=== PATIENT | female | born 1955 | race American Indian/Alaskan Native ===

== ENCOUNTER 2017-02-21 03:35 | Emergency (ER) | payer MEDICAID ==
[2017-02-21] MEDS ORDERED: ATIVAN ONE (04:06)
[2017-02-21] MEDS ORDERED: ATIVAN IV ONE (04:10)
[2017-02-21] MEDS ORDERED: NEURONTIN PO ONE (04:33)
[2017-02-21] MEDS ORDERED: NACL 0.9% 1000 ML 1,000 ML ONE ×2 (04:43→10:24)
[2017-02-21] MEDS ORDERED: NACL 0.9% 1000 ML 1,000 ML IV ONE ×3 (04:47→10:24)
[2017-02-21] MEDS ORDERED: ZOFRAN IV ONE (06:31)
--- NOTE | 2017-02-21 07:00 | Emergency Department Report ---
- General Chief complaint: Extremity Injury, Lower Stated complaint: GENERAL ILLNESS Time Seen by Provider: 02/21/17 06:30 Source: patient, EMS Mode of arrival: Stretcher Limitations: No Limitations - History of Present Illness Initial comments: Patient is a 61-year-old female with a history of diabetes, neuropathy, and anxiety presents to the ER with hyperglycemia and weakness. Patient is a poor historian, daughter at bedside reports patient is a diabetic and has been complaining of neuropathic pains for some time now. Patient reports she did see her PMD on Wednesday and does have all her medications, but cannot recall when the last time she took her insulin bolus. Patient does state NovoLog 7030 and reports she takes 20 units in the morning and 10 units at night. Currently patient has no complaints besides neuropathy in her lower extremities. Otherwise no fevers, chills, dizziness, nausea, vomiting, diarrhea, chest pain, shortness of breath, abdominal pain, dysuria, back pain, travel, or sick contacts. MD Complaint: generalized weakness -: Gradual Severity scale (0 -10): 0 - Related Data Home Medications Medication Instructions Recorded Confirmed Last Taken Gabapentin [Neurontin] 300 mg PO Q8HR 02/21/17 02/21/17 Unknown Allergies Allergy/AdvReac Type Severity Reaction Status Date / Time Iodinated Contrast Media - AdvReac Hives Verified 02/21/17 04:04 IV Dye Latex, Natural Rubber AdvReac Hives Verified 02/21/17 04:04 ED Review of Systems ROS: Stated complaint: GENERAL ILLNESS Other details as noted in HPI Comment: All other systems reviewed and negative ED Past Medical Hx - Past Medical History Previous Medical History?: Yes Hx Diabetes: Yes Hx COPD: Yes Additional medical history: anxiety - Social History Smoking Status: Current Every Day Smoker Substance Use Type: None - Medications Home Medications: Home Medications Medication Instructions Recorded Confirmed Last Taken Type Gabapentin [Neurontin] 300 mg PO Q8HR 02/21/17 02/21/17 Unknown History ED Physical Exam - General Limitations: No Limitations General appearance: alert, in no apparent distress - Head Head exam: Present: atraumatic, normocephalic - Eye Eye exam: Present: normal appearance - ENT ENT exam: Present: mucous membranes moist - Neck Neck exam: Present: normal inspection - Respiratory Respiratory exam: Present: normal lung sounds bilaterally. Absent: respiratory distress - Cardiovascular Cardiovascular Exam: Present: regular rate, normal rhythm, normal heart sounds. Absent: systolic murmur, diastolic murmur, rubs, gallop - GI/Abdominal GI/Abdominal exam: Present: soft, normal bowel sounds. Absent: distended, tenderness, guarding, rebound - Extremities Exam Extremities exam: Present: normal inspection, full ROM. Absent: tenderness, pedal edema, joint swelling, calf tenderness - Back Exam Back exam: Present: normal inspection - Neurological Exam Neurological exam: Present: alert, oriented X3, CN II-XII intact. Absent: motor sensory deficit - Psychiatric Psychiatric exam: Present: normal affect, normal mood - Skin Skin exam: Present: warm, dry, intact, normal color. Absent: rash ED Course Vital Signs 02/21/17 02/21/17 02/21/17 03:59 04:00 06:03 Temperature 97.7 F Pulse Rate 82 85 Respiratory 31 H 20 20 Rate Blood Pressure 151/92 Blood Pressure 97/78 [Left] Blood Pressure [Right] O2 Sat by Pulse 100 98 98 Oximetry 02/21/17 10:02 Temperature Pulse Rate Respiratory Rate Blood Pressure Blood Pressure 118/72 [Left] Blood Pressure 108/64 [Right] O2 Sat by Pulse Oximetry - Reevaluation(s) Reevaluation #1: 02/21/17 10:24 Pt re-evaluated, no complaints, resting comfortably, repeat FSG after 1L NS IVF : 275, Ordered 2nd liter Reevaluation #2: 02/21/17 11:48 Pt resting comfortably, s/p 2nd L of NS, repeat FS ED Medical Decision Making - Lab Data Result diagrams: 02/21/17 03:30 02/21/17 08:11 - Medical Decision Making Pt has uncontrolled DM vs med noncompliance. No evidence of DKA, patient FSG improving with NS alone. Lactic acid normal, mild AG elevation, will ordered 2nd liter and re-assess. Results discussed with daughter at the bedside, instructed her to make sure her mother is taking her insulin and takes it today when she leaves the ER and to follow up with her PMD Critical care attestation.: If time is entered above; I have spent that time in minutes in the direct care of this critically ill patient, excluding procedure time. ED Disposition Clinical Impression: Hyperglycemia due to type 2 diabetes mellitus, Neuropathy Disposition: DISCHARGED TO HOME OR SELFCARE Is pt being admited?: No Condition: Stable Instructions: Diabetes Mellitus Type 2 in Adults (ED), Diabetic Neuropathy (ED) Referrals: PRIMARY CARE,MD [Primary Care Provider] - 3-5 Days
[2017-02-21 07:06] LABS: Bacteria,Urine 1+ /HPF (Negative); Bilirubin,Urine NEG (Negative); Blood,Urine NEG (Negative); Ketones,Urine NEG (Negative); Leukocyte Esterase,Urine NEG (Negative); Nitrite,Urine NEG (Negative); Protein,Urine <15 mg/dL mg/dL (Negative); RBC,Urine < 1.0 /HPF (0.0-6.0); Urobilinogen,Urine < 2.0 mg/dL (<2.0)
[2017-02-21 07:13] LABS: Eosinophils % (Auto) 0.5 % (0.0-4.3)
[2017-02-21 07:15] LABS: Hematocrit 39.5 % (30.3-42.9); Mean Corpuscular Hemoglobin 29 pg (28-32); Mean Corpuscular Volume 86 fl (79-97); Red Blood Count 4.57 M/mm3 (3.65-5.03); White Blood Count 6.9 K/mm3 (4.5-11.0)
[2017-02-21 07:16] LABS: Basophils % (Auto) 0.4 % (0.0-1.8); Lipase 49 units/L (13-60); Mean Corpuscular HGB Conc 33 % (30-34); Red Cell Distribution Width 14.9 % (13.2-15.2)
[2017-02-21 07:17] LABS: Platelet Count 125 K/mm3 (140-440)
[2017-02-21 07:46] LABS: Anion Gap TNR mmol/L; Carbon Dioxide TNR mmol/L (22-30); Potassium TNR mmol/L (3.6-5.0)
[2017-02-21 08:25] LABS: BUN/Creatinine Ratio TNR; Blood Urea Nitrogen TNR mg/dL (7-17); Chloride TNR mmol/L (98-107); Glucose TNR mg/dL (65-100); Sodium TNR mmol/L (137-145)
[2017-02-21 08:26] LABS: Alanine Aminotransferase TNR units/L (7-56); Albumin TNR g/dL (3.9-5); Bilirubin,Direct TNR mg/dL (0-0.2); Bilirubin,Indirect TNR mg/dL; Bilirubin,Total TNR mg/dL (0.1-1.2); Calcium TNR mg/dL (8.4-10.2); Total Protein TNR g/dL (6.3-8.2)
[2017-02-21 08:27] LABS: Albumin/Globulin Ratio TNR %; Alkaline Phosphatase TNR units/L (35-129)
[2017-02-21 08:33] LABS: Alanine Aminotransferase 25 units/L (7-56); Albumin 3.3 g/dL (3.9-5); Albumin/Globulin Ratio 1.1 %; Alkaline Phosphatase 68 units/L (35-129); Anion Gap 16 mmol/L; BUN/Creatinine Ratio 13.33; Blood Urea Nitrogen 8 mg/dL (7-17); Calcium 7.7 mg/dL (8.4-10.2); Carbon Dioxide 19 mmol/L (22-30); Chloride 107.1 mmol/L (98-107); Glucose 261 mg/dL (65-100); Potassium 3.8 mmol/L (3.6-5.0); Sodium 138 mmol/L (137-145); Total Protein 6.4 g/dL (6.3-8.2)
[2017-02-21 10:03] VITALS: BP 118/72
== END 2017-02-21 13:26 | disposition home or self-care (01) ==
LOC: ED 03:35
DX: E11.40 Type 2 diabetes mellitus with diabetic neuropathy, unspecified (principal); E11.65 Type 2 diabetes mellitus with hyperglycemia; E11.9 Type 2 diabetes mellitus without complications; J44.9 Chronic obstructive pulmonary disease, unspecified; F17.200 Nicotine dependence, unspecified, uncomplicated
CPT/HCPCS: 36415; 80048; 80053; 80074; 81001; 82140; 82805; 82962; 83690; 85025; 96361; 96374; 96375; 99284; J2060; J2405; J7030

== ENCOUNTER 2017-05-14 12:21 | Inpatient (IN) | payer MEDICAID ==
[2017-05-14 13:31] LABS: Basophils % (Auto) 0.9 % (0.0-1.8); Eosinophils % (Auto) 4.9 % (0.0-4.3); Hematocrit 36.9 % (30.3-42.9); Hemoglobin 11.9 gm/dl (10.1-14.3); Mean Corpuscular HGB Conc 32 % (30-34); Mean Corpuscular Hemoglobin 27 pg (28-32); Mean Corpuscular Volume 83 fl (79-97); Platelet Count 217 K/mm3 (140-440); Red Blood Count 4.45 M/mm3 (3.65-5.03); Red Cell Distribution Width 15.5 % (13.2-15.2); White Blood Count 7.7 K/mm3 (4.5-11.0)
[2017-05-14 13:41] LABS: Anion Gap 20 mmol/L; BUN/Creatinine Ratio 13.33; Blood Urea Nitrogen 12 mg/dL (7-17); Calcium 8.4 mg/dL (8.4-10.2); Carbon Dioxide 21 mmol/L (22-30); Chloride 101.9 mmol/L (98-107); Potassium 4.3 mmol/L (3.6-5.0); Sodium 139 mmol/L (137-145)
[2017-05-14 13:44] LABS: Urine Drugs of Abuse Note Disclamer
[2017-05-14 13:49] LABS: Glucose 508 mg/dL (65-100)
[2017-05-14 14:00] LABS: Bilirubin,Urine NEG (Negative); Blood,Urine NEG (Negative); Ketones,Urine NEG (Negative); Leukocyte Esterase,Urine NEG (Negative); Nitrite,Urine NEG (Negative); Protein,Urine <15 mg/dL mg/dL (Negative); Urobilinogen,Urine < 2.0 mg/dL (<2.0); WBC,Urine < 1.0 /HPF (0.0-6.0)
--- NOTE | 2017-05-14 20:31 | Emergency Department Report ---
HPI - General Chief Complaint: Medical Clearance Time Seen by Provider: 05/14/17 20:03 - HPI HPI: His is a 61-year-old Afro-Bur[place]ese female presents to the emergency department from home with complaints of auditory hallucinations that tell her to kill herself that started this morning. She says that these voices are nonspecific but they tell her to stab herself and her throat. She has a history of bipolar disorder and says that she used to be on Risperdal but she has not taken it in many months as she does not like the way it feels. She also has a past medical history of COPD but is not oxygen dependent and is diabetic on both pills and insulin. She took her glyburide today but did not take her insulin. She did not complain of any palpitations but appears to be an arrhythmia on the monitor and says that she has no history of any type of arrhythmia. She denies any tobacco use or illicit drug use or abuse. She did not take anything for symptoms prior to presentation. Recent travel or sick contacts at home. She does complain of some swelling to the lower extremities and some intermittent chest discomfort. ED Past Medical Hx - Past Medical History Hx Diabetes: Yes Hx COPD: Yes Additional medical history: anxiety - Surgical History Past Surgical History?: No - Social History Smoking Status: Current Every Day Smoker Substance Use Type: None, Cocaine - Medications Home Medications: Home Medications Medication Instructions Recorded Confirmed Last Taken Type Gabapentin [Neurontin] 300 mg PO Q8HR 02/21/17 05/14/17 Unknown History Glyburide 5 mg PO DAILY 05/14/17 05/14/17 Unknown History NovoLOG Mix 70/30 VIAL 20 units SUB-Q BID 05/14/17 05/14/17 Unknown History traZODone 100 mg PO HS 05/14/17 05/14/17 Unknown History ED Review of Systems ROS: Stated complaint: MH/HEARING VOICES/SUICIDAL THOUGHTS Other details as noted in HPI Comment: All other systems reviewed and negative Constitutional: denies: chills, fever Eyes: denies: eye pain, eye discharge, vision change ENT: denies: ear pain, throat pain Respiratory: denies: cough, shortness of breath Cardiovascular: chest pain, edema Gastrointestinal: denies: abdominal pain, nausea, diarrhea Genitourinary: denies: urgency, dysuria, discharge Musculoskeletal: denies: back pain, joint swelling, arthralgia Skin: denies: rash, lesions Neurological: denies: headache, weakness, paresthesias Psychiatric: auditory hallucinations, suicidal thoughts. denies: visual hallucinations, homicidal thoughts Physical Exam - Physical Exam Vital Signs: Vital Signs 05/14/17 05/14/17 05/14/17 12:54 20:04 20:10 Temperature 98.0 F 99.3 F Pulse Rate 98 H 109 H Respiratory 25 H Rate Blood Pressure 163/88 O2 Sat by Pulse 100 Oximetry 05/14/17 20:17 Temperature Pulse Rate Respiratory 21 Rate Blood Pressure O2 Sat by Pulse Oximetry Physical Exam: GENERAL: The patient is well-developed well-nourished. HEENT: Normocephalic. Atraumatic. Extraocular motions are intact. Patient has moist mucous membranes. Pupils equal reactive to light bilaterally. NECK: Supple. Trachea is midline. CHEST/LUNGS: Clear to auscultation. There is no respiratory distress noted. HEART/CARDIOVASCULAR: Irregularly irregular with rapid rate. ABDOMEN: Abdomen is soft, nontender. Patient has normal bowel sounds. There is no abdominal distention. SKIN: Skin is warm and dry. NEURO: The patient is awake, alert, and oriented. The patient is cooperative. The patient has no focal neurologic deficits. The patient has normal speech. Cranial nerves II through XII grossly intact. MUSCULOSKELETAL: There is no tenderness or deformity. There is no limitation range of motion. There is no evidence of acute injury. ED Course Vital Signs 05/14/17 05/14/17 05/14/17 12:54 20:04 20:10 Temperature 98.0 F 99.3 F Pulse Rate 98 H 109 H Respiratory 25 H Rate Blood Pressure 163/88 O2 Sat by Pulse 100 Oximetry 05/14/17 20:17 Temperature Pulse Rate Respiratory 21 Rate Blood Pressure O2 Sat by Pulse Oximetry ED Medical Decision Making - Lab Data Result diagrams: 05/14/17 13:06 05/14/17 13:06 - EKG Data -: EKG Interpreted by Me - EKG Data When compared to previous EKG there are: changes noted Interpretation: other (atrial flutter with PVCs, rate of 103 T-wave inversions to the inferior lateral leads) - Radiology Data Radiology results: report reviewed, image reviewed interpreted by me: Chest x-ray did not show any acute process. Heart is normal shape and size. No effusions. No pneumothorax. No signs of pneumonia seen. VQ scan is negative for pulmonary embolism. - Medical Decision Making 61-year-old female presents the emergency department with suicidal ideations, auditory hallucinations are telling her to stab herself in the neck and kill herself. For this reason the patient has been made a 1013. While I was doing my initial evaluation the patient was seen having a irregular heart rate and heart beat auscultation and palpation. EKG shows atrial flutter with RVR. Given a dose of Cardizem with some rate control but no chemical conversion. Most the patient's labs are unremarkable except for a very elevated d-dimer. For this reason a VQ scan was done, as the CT angiography is down, and it resulted as negative for pulmonary embolism. Chest x-ray does not show any acute process. She was given dose of Lovenox for anticoagulation. Due to the new onset atrial flutter the patient will be a medical admit but has been made a 1013. Patient was found to have a blood sugar of about 500 but this was at about 1: 00. The Accu-Chek showed the blood sugar to be about 320. Patient was given subcutaneous insulin. There is no significant elevation in anion gap and there is no venous acidosis and therefore low suspicion for DKA or HHNK. - Differential Diagnosis atrial flutter, atrial fibrillation, bipolar disorder, schizophrenia Critical Care Time: No Critical care attestation.: If time is entered above; I have spent that time in minutes in the direct care of this critically ill patient, excluding procedure time. ED Disposition Clinical Impression: Suicidal ideations, New onset atrial flutter, Hyperglycemia, Noncompliance with medication regimen Uncontrolled diabetes mellitus Qualifiers: Diabetes mellitus type: type 1 Diabetes mellitus complication status: with hyperglycemia Qualified Code(s): E10.65 - Type 1 diabetes mellitus with hyperglycemia Disposition: OP ADMIT IP TO THIS HOSP Is pt being admited?: Yes Condition: Fair Instructions: Diabetes Mellitus Type 2 in Adults (ED) Referrals: PRIMARY CARE, [Primary Care Provider] - 3-5 Days Time of Disposition: 23:24
[2017-05-14 20:51] LABS: INR 0.94 (0.87-1.13)
[2017-05-14 20:52] LABS: Partial Thromboplastin Time 25.4 Sec. (24.2-36.6)
[2017-05-14] MEDS ORDERED: CARDIZEM IV ONE (20:56)
[2017-05-14] MEDS ORDERED: ZOFRAN IV ONE (21:33)
--- NOTE | 2017-05-14 22:38 | Nuclear Medicine Report ---
FINAL REPORT EXAM: NM LUNG SCAN PERF/VENT HISTORY: CP, elevated dimer TECHNIQUE: Ventilation-perfusion study Exam performed with 15 millicuries Xe-133 gas for the ventilation study Perfusion exam performed following intravenous administration 5 millicuries technetium 99 M MAA PRIORS: Correlation is made to a prior chest radiograph of the same date FINDINGS: There is homogeneous distribution the radiotracer on ventilation exam. No evidence for air trapping. There is homogeneous distribution of the radiotracer on the perfusion study. No perfusion defects are identified. IMPRESSION: Negative. No scintigraphic evidence for acute pulmonary embolus
[2017-05-14] MEDS ORDERED: LOVENOX SUB-Q ONE (22:39)
[2017-05-14] MEDS ORDERED: NACL 0.9% 1000 ML 1,000 ML IV SCH (23:45)
--- NOTE | 2017-05-14 23:47 | History and Physical Report ---
History of Present Illness Date of examination: 05/14/17 Date of admission: 05/14/17 Chief complaint: hearing voices telling her to kill self palpitations History of present illness: Patient is 41-year-old with history of diabetes, hypertensio. She came to the emergency department because of psychosis. Shee stated that she heard voices telling her to kill herself. While in ED, she started complaining of shortness of breath and palpitation. EKG showed atrial flutter. She was given Cardizem iv. She will be admitted to telemetry. 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 denies: alcohol abuse Medications and Allergies Allergies Allergy/AdvReac Type Severity Reaction Status Date / Time Iodinated Contrast Media - AdvReac Hives Verified 02/21/17 04:04 IV Dye Latex, Natural Rubber AdvReac Hives Verified 02/21/17 04:04 Home Medications Medication Instructions Recorded Confirmed Last Taken Type Gabapentin [Neurontin] 300 mg PO Q8HR 02/21/17 05/14/17 Unknown History Glyburide 5 mg PO DAILY 05/14/17 05/14/17 Unknown History NovoLOG Mix 70/30 VIAL 20 units SUB-Q BID 05/14/17 05/14/17 Unknown History traZODone 100 mg PO HS 05/14/17 05/14/17 Unknown History Review of Systems All systems: negative (no fever, no cough, no abdominal pain, no vomiting. All other systems reviewed and are negative) Exam - Physical Exam Narrative exam: Gen appearance: Not in acute distress HEENT:tongue and mouth dry,head atraumatic Neck:supple, no JVD, Lungs: clear to auscultation bilaterally, no crackles or wheezes Heart :S1 and S2 irregular, no murmurs, rubs or gallop Abdomen: Soft, non tender, non distended, normal bowel sounds Extremities :no edema no clubbing or cyanosis Neuro: Awake, alert oriented 3, normal speech,no focal neurological signs - Constitutional Vitals: Temp Pulse Resp BP Pulse Ox 99.3 F 92 H 16 146/88 98 05/14/17 20:10 05/14/17 22:55 05/14/17 22:55 05/14/17 22:55 05/14/17 22:55 Results - Labs CBC & Chem 7: 05/14/17 13:06 05/14/17 13:06 Labs: Abnormal lab results 05/14/17 05/14/17 05/14/17 Range/Units 13:06 13:06 20:14 MCH 27 L (28-32) pg RDW 15.5 H (13.2-15.2) % Brooke % (Auto) 10.0 H (0.0-7.3) % Eos % (Auto) 4.9 H (0.0-4.3) % D-Dimer (0-234) ng/mlDDU Carbon Dioxide 21 L (22-30) mmol/L Glucose 508 H* (65-100) mg/dL POC Glucose 329 H (70-105) NT-Pro-B Natriuret Pep (0-900) pg/mL 05/14/17 05/14/17 Range/Units 20:32 20:32 MCH (28-32) pg RDW (13.2-15.2) % Brooke % (Auto) (0.0-7.3) % Eos % (Auto) (0.0-4.3) % D-Dimer 1701.89 H (0-234) ng/mlDDU Carbon Dioxide (22-30) mmol/L Glucose (65-100) mg/dL POC Glucose (70-105) NT-Pro-B Natriuret Pep 1426 H (0-900) pg/mL Assessment and Plan Atrial flutter with rapid ventricular response, new onset. Admit to telemetry. Start Cardizem 60 mg by mouth every 6 hours. She was given Cardizem IV push in the ED. Start on anticoagulation with Lovenox. Obtain echocardiogram. 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 Diabetes mellitus type 2. Check fingerstick glucose before every meal and at bedtime Hypertension . BP borderline. Acute psychosis with hallucinations. Patient states she has voices tell her to kill herself. Consult psych Suicidal. Consult psych Full CODE STATUS.
[2017-05-14] MEDS ORDERED: ZOFRAN IV PRN (23:48)
[2017-05-14] MEDS ORDERED: MILK OF MAGNESIA PO PRN (23:48)
[2017-05-14] MEDS ORDERED: TYLENOL PO PRN (23:48)
[2017-05-14] MEDS ORDERED: DULCOLAX PR PRN (23:48)
[2017-05-14] MEDS ORDERED: MORPHINE IV PRN (23:48)
[2017-05-15 00:27] LABS: Magnesium 1.8 mg/dL (1.7-2.3); Phosphorous 2.5 mg/dL (2.5-4.5)
[2017-05-15] MEDS: CARDIZEM PO SCH ×5 (01:10→22:34)
[2017-05-15] MEDS ORDERED: CARDIZEM ONE (06:41)
[2017-05-15 06:47] LABS: Basophils % (Auto) 1.1 % (0.0-1.8); Eosinophils % (Auto) 3.7 % (0.0-4.3); Hematocrit 36.7 % (30.3-42.9); Hemoglobin 11.9 gm/dl (10.1-14.3); Mean Corpuscular HGB Conc 33 % (30-34); Mean Corpuscular Hemoglobin 27 pg (28-32); Mean Corpuscular Volume 82 fl (79-97); Platelet Count 227 K/mm3 (140-440); Red Blood Count 4.48 M/mm3 (3.65-5.03); Red Cell Distribution Width 15.2 % (13.2-15.2)
[2017-05-15 07:10] LABS: Anion Gap 15 mmol/L; BUN/Creatinine Ratio 17.14; Blood Urea Nitrogen 12 mg/dL (7-17); Calcium 8.3 mg/dL (8.4-10.2); Carbon Dioxide 26 mmol/L (22-30); Chloride 100.4 mmol/L (98-107); Glucose 325 mg/dL (65-100); Potassium 4.4 mmol/L (3.6-5.0); Sodium 137 mmol/L (137-145)
--- NOTE | 2017-05-15 09:16 | XRay Report ---
Single view chest: History: Chest pain. Findings: Borderline cardiomegaly. Trachea is midline. Bibasilar atelectasis. Blunting of right CP angle probably due to pleural thickening/pleural effusion. Impression: Bibasilar atelectasis with bilateral pleural effusion/pleural thickening.
[2017-05-15] MEDS ORDERED: NOVOLOG MIX SUB-Q SCH (10:00)
[2017-05-15] MEDS: LOVENOX SUB-Q SCH ×2 (10:18→22:34)
[2017-05-15] MEDS ORDERED: D50W (25GM) Syringe IV PRN (11:58)
--- NOTE | 2017-05-15 11:58 | Progress Note ---
Assessment and Plan Assessment and plan: Patient is 41-year-old with history of diabetes, hypertensio. She came to the emergency department because of psychosis. Shee stated that she heard voices telling her to kill herself. While in ED, she started complaining of shortness of breath and palpitation. EKG showed atrial flutter. She was given Cardizem iv. She will be admitted to telemetry. Atrial flutter with rapid ventricular response, new onset. Admit to telemetry. Cardizem 60 mg by mouth every 6 hours. She was given Cardizem IV push in the ED. anticoagulation with Lovenox. Obtain echocardiogram. Consult cardiology BNP noted to be 1426 Elevated D-dimer VQ scan is negative, obtain US of LE to r/o DVT Diabetes mellitus type 2. Hyperglycemia, will increase dose of insulin, continue sliding scale Hypertension . BP borderline. Acute psychosis with hallucinations, and Suicidal ideations. Patient states she has voices tell her to kill herself. Consult psych Suicidal Ideation. Consult psych DVT ppx- fully antiocoagulated History Interval history: Denies chest pain, denies shortness of breath. States that she still hearing voices which have been telling her to hurt herself Hospitalist Physical - Physical exam Narrative exam: General: Patient appears well in no distress HEENT: MMM, EOMI cardiac: S1-S2 heard lungs: clear to auscultation, abdomen: soft, nontender, nondistended bowel sounds positive extremities: LLE edema Skin: no rash or lesion Neuro: no focal deficit Psych: Cooperative, however disorganized behavior - Constitutional Vitals: Temp Pulse Resp BP Pulse Ox 98 F 83 18 109/89 98 05/15/17 03:00 05/15/17 09:17 05/15/17 03:00 05/15/17 06:00 05/15/17 09:27 Results - Labs CBC & Chem 7: 05/15/17 06:26 05/16/17 09:54 Labs: Laboratory Last Values WBC 9.0 K/mm3 (4.5-11.0) 05/15/17 06:26 RBC 4.48 M/mm3 (3.65-5.03) 05/15/17 06:26 Hgb 11.9 gm/dl (10.1-14.3) 05/15/17 06:26 Hct 36.7 % (30.3-42.9) 05/15/17 06:26 MCV 82 fl (79-97) 05/15/17 06:26 MCH 27 pg (28-32) L 05/15/17 06:26 MCHC 33 % (30-34) 05/15/17 06:26 RDW 15.2 % (13.2-15.2) 05/15/17 06:26 Plt Count 227 K/mm3 (140-440) 05/15/17 06:26 Lymph % (Auto) 34.3 % (13.4-35.0) 05/15/17 06:26 [place] % (Auto) 7.5 % (0.0-7.3) H 05/15/17 06:26 Eos % (Auto) 3.7 % (0.0-4.3) 05/15/17 06:26 Baso % (Auto) 1.1 % (0.0-1.8) 05/15/17 06:26 Lymph # 3.1 K/mm3 (1.2-5.4) 05/15/17 06:26 [place] # 0.7 K/mm3 (0.0-0.8) 05/15/17 06:26 Eos # 0.3 K/mm3 (0.0-0.4) 05/15/17 06:26 Baso # 0.1 K/mm3 (0.0-0.1) 05/15/17 06:26 Seg Neutrophils % 53.4 % (40.0-70.0) 05/15/17 06:26 Seg Neutrophils # 4.8 K/mm3 (1.8-7.7) 05/15/17 06:26 PT 12.5 Sec. (12.2-14.9) 05/14/17 20:32 INR 0.94 (0.87-1.13) 05/14/17 20:32 APTT 25.4 Sec. (24.2-36.6) 05/14/17 20:32 D-Dimer 1701.89 ng/mlDDU (0-234) H 05/14/17 20:32 VBG pH 7.395 (7.320-7.420) 05/14/17 20:25 Sodium 137 mmol/L (137-145) 05/15/17 06:26 Potassium 4.4 mmol/L (3.6-5.0) 05/15/17 06:26 Chloride 100.4 mmol/L (98-107) 05/15/17 06:26 Carbon Dioxide 26 mmol/L (22-30) 05/15/17 06:26 Anion Gap 15 mmol/L 05/15/17 06:26 BUN 12 mg/dL (7-17) 05/15/17 06:26 Creatinine 0.7 mg/dL (0.7-1.2) 05/15/17 06:26 Estimated GFR > 60 ml/min 05/15/17 06:26 BUN/Creatinine Ratio 17.14 % 05/15/17 06:26 Glucose 325 mg/dL (65-100) H 05/15/17 06:26 POC Glucose 422 (70-105) H 05/15/17 08:45 Calcium 8.3 mg/dL (8.4-10.2) L 05/15/17 06:26 Phosphorus 2.50 mg/dL (2.5-4.5) 05/14/17 20:32 Magnesium 1.80 mg/dL (1.7-2.3) 05/14/17 20:32 Troponin T < 0.010 ng/mL (0.00-0.029) 05/14/17 20:32 NT-Pro-B Natriuret Pep 1426 pg/mL (0-900) H 05/14/17 20:32 TSH 1.020 mlU/mL (0.270-4.200) 05/14/17 20:32 Free T4 0.80 ng/dL (0.76-1.46) 05/14/17 20:32 Urine Color Straw (Yellow) 05/14/17 13:37 Urine Turbidity Clear (Clear) 05/14/17 13:37 Urine pH 5.0 (5.0-7.0) 05/14/17 13:37 Ur Specific [place] 1.013 (1.003-1.030) 05/14/17 13:37 Urine Protein <15 mg/dl mg/dL (Negative) 05/14/17 13:37 Urine Glucose (UA) >=500 mg/dL (Negative) 05/14/17 13:37 Urine Ketones Neg mg/dL (Negative) 05/14/17 13:37 Urine Blood Neg (Negative) 05/14/17 13:37 Urine Nitrite Neg (Negative) 05/14/17 13:37 Urine Bilirubin Neg (Negative) 05/14/17 13:37 Urine Urobilinogen < 2.0 mg/dL (<2.0) 05/14/17 13:37 Ur Leukocyte Esterase Neg (Negative) 05/14/17 13:37 Urine WBC (Auto) < 1.0 /HPF (0.0-6.0) 05/14/17 13:37 Urine RBC (Auto) 1.0 /HPF (0.0-6.0) 05/14/17 13:37 Urine Opiates Screen Presumptive negative 05/14/17 13:37 Urine Methadone Screen Presumptive negative 05/14/17 13:37 Ur Barbiturates Screen Presumptive negative 05/14/17 13:37 Ur Phencyclidine Scrn Presumptive negative 05/14/17 13:37 Ur Amphetamines Screen Presumptive negative 05/14/17 13:37 U Benzodiazepines Scrn Presumptive negative 05/14/17 13:37 Urine Cocaine Screen Presumptive negative 05/14/17 13:37 U Marijuana (THC) Screen Presumptive negative 05/14/17 13:37 Drugs of Abuse Note Disclamer 05/14/17 13:37 Plasma/Serum Alcohol < 0.01 gm% (0-0.07) 05/14/17 13:06
--- NOTE | 2017-05-15 12:44 | Consultation ---
History of Present Illness Consult date: 05/15/17 Requesting physician: KAT WIGGINS Consult reason: arrhythmia, chest pain History of present illness: The patient has a history of bipolar disorder. She claims that she was experiencing auditory hallucinations which instructed her to cut her neck. On account of this, when she told her daughter, she was brought to the emergency department. While in the ER, she developed right-sided chest pain associated with shortness of breath and radiation to her right arm. She denies palpitations or dizziness. She was noted to have a brief episode of atrial flutter on the monitor. Today, she has demonstrated another brief episode of rapid atrial flutter/fibrillation. Due to elevated d-dimer, she had a VQ scan which was negative for pulmonary embolism. Thyroid profile is normal. Past History Past Medical History: COPD, diabetes, hypertension, hyperlipidemia, other ( bipolar disorder) Past Surgical History: Social history: (but from her . She has 3 children.), smoking, full code. denies: alcohol abuse Family history: CAD Medications and Allergies Allergies Allergy/AdvReac Type Severity Reaction Status Date / Time Iodinated Contrast Media - AdvReac Hives Verified 02/21/17 04:04 IV Dye Latex, Natural Rubber AdvReac Hives Verified 02/21/17 04:04 Home Medications Medication Instructions Recorded Confirmed Last Taken Type Gabapentin [Neurontin] 300 mg PO Q8HR 02/21/17 05/14/17 Unknown History Glyburide 5 mg PO DAILY 05/14/17 05/14/17 Unknown History NovoLOG Mix 70/30 VIAL 20 units SUB-Q BID 05/14/17 05/14/17 Unknown History traZODone 100 mg PO HS 05/14/17 05/14/17 Unknown History Active Meds: Active Medications Acetaminophen (Tylenol) 650 mg PO Q4H PRN PRN Reason: Pain MILD(1-3)/Fever >100.5/GEE Bisacodyl (Dulcolax) 10 mg AR QDAY PRN PRN Reason: Constipation unrelieved by MOM Dextrose (D50w (25gm)) 50 ml IV PRN PRN PRN Reason: Hypoglycemia Diltiazem HCl (Cardizem) 30 mg PO Q6HR JAY Last Admin: 05/15/17 12:01 Dose: 30 mg Enoxaparin Sodium (Lovenox) 60 mg 1 mg/kg (60 mg) SUB-Q Q12HR [facility] Last Admin: 05/15/17 10:18 Dose: 60 mg Gabapentin (Neurontin) 300 mg PO Q8HR [facility] [place] Sodium Chloride (Nacl 0.9% 1000 Ml) 1,000 mls @ 75 mls/hr IV DIRECT JAY Insulin Aspart (Novolog) 0 units SUB-Q ACHS [facility] PRN Reason: Protocol Insulin Human Isoph/Insulin Regular (Novolin 70/30) 30 unit SUB-Q BIDDIAB [facility] Magnesium Hydroxide (Milk Of Magnesia) 30 ml PO Q4H PRN PRN Reason: Constipation Morphine Sulfate (Morphine) 2 mg IV Q4H PRN PRN Reason: Pain, Moderate (4-6) Ondansetron HCl (Zofran) 4 mg IV Q6H PRN PRN Reason: nausea or vomiting Trazodone HCl (Desyrel) 100 mg PO HS [facility] Review of Systems Constitutional: no fever, no chills Ears, nose, mouth and throat: no ear pain, no ear discharge, no sore throat Cardiovascular: chest pain, edema, shortness of breath, no orthopnea, no palpitations, no lightheadedness Respiratory: shortness of breath, no cough, no hemoptysis Gastrointestinal: no abdominal pain, no nausea, no vomiting, no diarrhea, no constipation Genitourinary Female: no dysuria, no urinary frequency Rectal: no pain, no bleeding Musculoskeletal: no neck stiffness, no neck pain, no myalgias Integumentary: no rash, no pruritis Neurological: no weakness, no parathesias, no numbness, no tingling, no headaches Psychiatric: hallucinations Endocrine: no cold intolerance, no heat intolerance Hematologic/Lymphatic: no easy bruising, no easy bleeding Allergic/Immunologic: wheezing, no urticaria Physical Examination Vital Signs Last Vital Signs Temp 98 F 05/15/17 03:00 Pulse 83 05/15/17 09:17 Resp 18 05/15/17 03:00 BP 109/89 05/15/17 06:00 Pulse Ox 98 05/15/17 09:27 General appearance: no acute distress HEENT: Positive: EOMI, Normocephaly, Mucus Membranes Moist Neck: Positive: neck supple, trachea midline Cardiac: Positive: Reg Rate and Rhythm, S1/S2 Lungs: Positive: clear to auscultation Neuro: Positive: Grossly Intact Abdomen: Positive: Soft, Active Bowel Sounds. Negative: Tender Skin: Positive: Clear. Negative: Rash Musculoskeletal: Normal Range of Motion Extremities: Present: +1 Edema (both legs) Results 05/15/17 06:26 05/15/17 06:26 CBC 05/15/17 Range/Units 06:26 WBC 9.0 (4.5-11.0) K/mm3 RBC 4.48 (3.65-5.03) M/mm3 Hgb 11.9 (10.1-14.3) gm/dl Hct 36.7 (30.3-42.9) % Plt Count 227 (140-440) K/mm3 Lymph # 3.1 (1.2-5.4) K/mm3 [place]itt # 0.7 (0.0-0.8) K/mm3 Eos # 0.3 (0.0-0.4) K/mm3 Baso # 0.1 (0.0-0.1) K/mm3 Comprehensive Metabolic Panel 05/15/17 Range/Units 06:26 Sodium 137 (137-145) mmol/L Potassium 4.4 (3.6-5.0) mmol/L Chloride 100.4 (98-107) mmol/L Carbon Dioxide 26 (22-30) mmol/L BUN 12 (7-17) mg/dL Creatinine 0.7 (0.7-1.2) mg/dL Glucose 325 H (65-100) mg/dL Calcium 8.3 L (8.4-10.2) mg/dL - Imaging and Cardiology EKG: image reviewed EKG interpretations - Telemetry EKG Rhythm: Sinus Rhythm (with brief paroxysm of atrial flutter) - EKG Supraventricular dysrhythmia: atrial flutter Repolarization changes or abnormalities: ST or T wave suggestive of ischemia Assessment and Plan I agree with the use of oral Cardizem to regulate her paroxysmal atrial flutter. Obtain echocardiogram. Gentle diuresis. Lexiscan stress test with nuclear imaging in a.m. - Patient Problems (1) Paroxysmal atrial flutter Current Visit: Yes Status: Acute (2) New onset atrial flutter Current Visit: Yes Status: Acute (3) Chest pain Current Visit: Yes Status: Acute Qualifiers: Chest pain type: other chest pain Ischemic chest pain type: I Qualified Code(s): R07.89 - Other chest pain; R07.8 - Other chest pain (4) Abnormal ECG Current Visit: Yes Status: Acute (5) COPD (chronic obstructive pulmonary disease) Current Visit: Yes Status: Acute Qualifiers: COPD type: COPD with acute exacerbation Chronic bronchitis type: C Emphysema type: E Qualified Code(s): J44.1 - Chronic obstructive pulmonary disease with (acute) exacerbation (6) Acute heart failure Current Visit: Yes Status: Acute Qualifiers: Heart failure type: H (7) Hallucinations Current Visit: Yes Status: Acute (8) Diabetes mellitus Current Visit: Yes Status: Chronic Qualifiers: Diabetes mellitus type: type 2 Diabetes mellitus complication status: D Diabetes mellitus complication detail: D Diabetic retinopathy severity: D Proliferative retinopathy type: P Diabetes mellitus macular edema: D Diabetes mellitus jail insulin use: D Laterality: L Chronic kidney disease stage: C
[2017-05-15] MEDS ORDERED: LANOXIN IV ONE (13:01)
--- NOTE | 2017-05-15 14:32 | Consultation ---
History of Present Illness - Reason for Consult Consult date: 05/15/17 Reason for consult: psychiatric evaluation for psychosis & SI - Chief Complaint Chief complaint: "I was hearing voices to cut my throat." 61 year old female presented to the ER with AH to cut her throat. She reports the AH have been under control for an unspecified amount of time. She quit taking risperdal because of side effects. She also was taking trazodone and cymbalta for depression. She states it made her feel bad and makes her heart rate increase. She is currently admitted to the hospital for atrial flutter. She has an outpatient psychiatrist in [place] and reports being treated for long standing depression and a history of psychotic features. She denies alcohol or substance use. She states her diabetes is generally under control and it wasn't in the ER because she spent a long time waiting without medication. Memory screening revealed intact recent and remote memory. She went for a vascular study immediately after the interview. Medications and Allergies Allergies Allergy/AdvReac Type Severity Reaction Status Date / Time gabapentin AdvReac Unknown Verified 05/15/17 15:09 Iodinated Contrast Media - AdvReac Hives Verified 02/21/17 04:04 IV Dye Latex, Natural Rubber AdvReac Hives Verified 02/21/17 04:04 Home Medications Medication Instructions Recorded Confirmed Last Taken Type Gabapentin [Neurontin] 300 mg PO Q8HR 02/21/17 05/14/17 Unknown History Glyburide 5 mg PO DAILY 05/14/17 05/14/17 Unknown History NovoLOG Mix 70/30 VIAL 20 units SUB-Q BID 05/14/17 05/14/17 Unknown History traZODone 100 mg PO HS 05/14/17 05/14/17 Unknown History Active Meds: Active Medications Acetaminophen (Tylenol) 650 mg PO Q4H PRN PRN Reason: Pain MILD(1-3)/Fever >100.5/GEE Bisacodyl (Dulcolax) 10 mg NC QDAY PRN PRN Reason: Constipation unrelieved by MOM Dextrose (D50w (25gm)) 50 ml IV PRN PRN PRN Reason: Hypoglycemia Diltiazem HCl (Cardizem) 30 mg PO Q6HR JAY Last Admin: 05/15/17 12:01 Dose: 30 mg Enoxaparin Sodium (Lovenox) 60 mg 1 mg/kg (60 mg) SUB-Q Q12HR [facility] Last Admin: 05/15/17 10:18 Dose: 60 mg Furosemide (Lasix) 20 mg IV 0600,1800 JAY Gabapentin (Neurontin) 300 mg PO Q8HR [facility] Sodium Chloride (Nacl 0.9% 1000 Ml) 1,000 mls @ 75 mls/hr IV DIRECT JAY Insulin Aspart (Novolog) 0 units SUB-Q ACHS [facility]AY PRN Reason: Protocol Insulin Human Isoph/Insulin Regular (Novolin 70/30) 30 unit SUB-Q BIDDIAB [facility] Magnesium Hydroxide (Milk Of Magnesia) 30 ml PO Q4H PRN PRN Reason: Constipation Morphine Sulfate (Morphine) 2 mg IV Q4H PRN PRN Reason: Pain, Moderate (4-6) Ondansetron HCl (Zofran) 4 mg IV Q6H PRN PRN Reason: nausea or vomiting Potassium Chloride (K-Dur) 10 meq PO BID JAY Trazodone HCl (Desyrel) 100 mg PO HS JAY Past psychiatric history - Past Medical History Past Medical History: COPD, diabetes - past Psychiatric treatment and history Psych: Depression - Social History Social history: Lives alone Mental Status Exam - Vital signs Last Vital Signs Temp 98 F 05/15/17 03:00 Pulse 83 05/15/17 09:17 Resp 18 05/15/17 03:00 BP 109/89 05/15/17 06:00 Pulse Ox 98 05/15/17 09:27 - Exam Orientation: time, place, person Affect: depressed Mood: congruent with affect Thought content: other (she reports SI from to harm herself. no HI) Thought Process: Intact Perceptions: auditory, command, hallucinations Speech: normal rate and pattern Concentration: focused Motor activity: normal Level of consciousness: alert Memory: Intact Sleep Symptoms: Difficulty Falling Asleep Interaction: cooperative Results Result Diagrams: 05/15/17 06:26 05/15/17 06:26 Abnormal lab results 05/15/17 05/15/17 05/15/17 Range/Units 06:26 06:26 08:45 MCH 27 L (28-32) pg Orange % (Auto) 7.5 H (0.0-7.3) % Glucose 325 H (65-100) mg/dL POC Glucose 422 H (70-105) Calcium 8.3 L (8.4-10.2) mg/dL All other labs normal. Assessment and Plan Assessment and plan: Impression: Psychotic disorder unspecified. ddx: schizophrenia, major depressive disorder with psychotic features Recommendation: Start zyprexa 2.5mg hs for mood and psychotic symptoms Continue 1013 and will follow daily
[2017-05-15] MEDS: NEURONTIN PO SCH ×2 (14:56→15:08)
[2017-05-15] MEDS: NOVOLOG SUB-Q SCH ×3 (17:52→22:05)
[2017-05-15] MEDS: MOTRIN PO PRN (17:52)
[2017-05-15] MEDS: LASIX IV SCH (17:54)
[2017-05-15] MEDS ORDERED: LEVEMIR SUB-Q SCH (22:00)
[2017-05-15] MEDS: K-DUR PO SCH (22:34)
[2017-05-15] MEDS: DESYREL PO SCH (22:34)
[2017-05-16] MEDS: LASIX IV SCH (06:32)
[2017-05-16] MEDS: CARDIZEM PO SCH ×3 (06:32→17:52)
[2017-05-16] MEDS: NOVOLOG SUB-Q SCH ×7 (09:03→21:58)
[2017-05-16] MEDS: K-DUR PO SCH (09:04)
[2017-05-16] MEDS ORDERED: ELIQUIS PO SCH (10:00)
[2017-05-16 10:30] LABS: Anion Gap 19 mmol/L; BUN/Creatinine Ratio 24.28; Blood Urea Nitrogen 17 mg/dL (7-17); Calcium 8.8 mg/dL (8.4-10.2); Carbon Dioxide 23 mmol/L (22-30); Glucose 244 mg/dL (65-100); Potassium 4.5 mmol/L (3.6-5.0); Sodium 135 mmol/L (137-145)
--- NOTE | 2017-05-16 12:21 | Progress Note ---
Assessment and Plan Assessment and plan: Patient is 41-year-old with history of diabetes, hypertensio. She came to the emergency department because of psychosis. Shee stated that she heard voices telling her to kill herself. While in ED, she started complaining of shortness of breath and palpitation. EKG showed atrial flutter. She was given Cardizem iv. She will be admitted to telemetry. Atrial flutter with rapid ventricular response, new onset. Admit to telemetry. Cardizem 60 mg by mouth every 6 hours. She was given Cardizem IV push in the ED. anticoagulation with Lovenox. Obtain echocardiogram. Consult cardiology BNP noted to be 1426 LLE acute DVT VQ scan is negative continue eliquis Diabetes mellitus type 2. Hyperglycemia, will increase dose of insulin, continue sliding scale Hypertension . BP borderline. Acute psychosis with hallucinations, and Suicidal ideations. Patient states she has voices tell her to kill herself. Consult psych Suicidal Ideation. continue 1013 psych input appreciated, meds being optimized dc gabapentin as it worsens her delireum may need inpatient psych placement DVT ppx- fully antiocoagulated History Interval history: Denies chest pain, denies shortness of breath. States that she still hearing voices which have been telling her to hurt herself Hospitalist Physical - Physical exam Narrative exam: General: Patient appears well in no distress HEENT: MMM, EOMI cardiac: S1-S2 heard lungs: clear to auscultation, abdomen: soft, nontender, nondistended bowel sounds positive extremities: LLE edema Skin: no rash or lesion Neuro: no focal deficit Psych: Cooperative, however disorganized behavior - Constitutional Vitals: Temp Pulse Resp BP Pulse Ox 98.5 F 73 18 134/99 96 05/16/17 11:00 05/16/17 11:00 05/16/17 11:00 05/16/17 11:00 05/16/17 11:00 General appearance: Present: no acute distress Results - Labs CBC & Chem 7: 05/15/17 06:26 05/16/17 09:54 Labs: Laboratory Last Values WBC 9.0 K/mm3 (4.5-11.0) 05/15/17 06:26 RBC 4.48 M/mm3 (3.65-5.03) 05/15/17 06:26 Hgb 11.9 gm/dl (10.1-14.3) 05/15/17 06:26 Hct 36.7 % (30.3-42.9) 05/15/17 06:26 MCV 82 fl (79-97) 05/15/17 06:26 MCH 27 pg (28-32) L 05/15/17 06:26 MCHC 33 % (30-34) 05/15/17 06:26 RDW 15.2 % (13.2-15.2) 05/15/17 06:26 Plt Count 227 K/mm3 (140-440) 05/15/17 06:26 Lymph % (Auto) 34.3 % (13.4-35.0) 05/15/17 06:26 Parker % (Auto) 7.5 % (0.0-7.3) H 05/15/17 06:26 Eos % (Auto) 3.7 % (0.0-4.3) 05/15/17 06:26 Baso % (Auto) 1.1 % (0.0-1.8) 05/15/17 06:26 Lymph # 3.1 K/mm3 (1.2-5.4) 05/15/17 06:26 Parker # 0.7 K/mm3 (0.0-0.8) 05/15/17 06:26 Eos # 0.3 K/mm3 (0.0-0.4) 05/15/17 06:26 Baso # 0.1 K/mm3 (0.0-0.1) 05/15/17 06:26 Seg Neutrophils % 53.4 % (40.0-70.0) 05/15/17 06:26 Seg Neutrophils # 4.8 K/mm3 (1.8-7.7) 05/15/17 06:26 PT 12.5 Sec. (12.2-14.9) 05/14/17 20:32 INR 0.94 (0.87-1.13) 05/14/17 20:32 APTT 25.4 Sec. (24.2-36.6) 05/14/17 20:32 D-Dimer 1701.89 ng/mlDDU (0-234) H 05/14/17 20:32 VBG pH 7.395 (7.320-7.420) 05/14/17 20:25 Sodium 135 mmol/L (137-145) L 05/16/17 09:54 Potassium 4.5 mmol/L (3.6-5.0) 05/16/17 09:54 Chloride 98.0 mmol/L (98-107) 05/16/17 09:54 Carbon Dioxide 23 mmol/L (22-30) 05/16/17 09:54 Anion Gap 19 mmol/L 05/16/17 09:54 BUN 17 mg/dL (7-17) 05/16/17 09:54 Creatinine 0.7 mg/dL (0.7-1.2) 05/16/17 09:54 Estimated GFR > 60 ml/min 05/16/17 09:54 BUN/Creatinine Ratio 24.28 % 05/16/17 09:54 Glucose 244 mg/dL (65-100) H 05/16/17 09:54 POC Glucose 318 (70-105) H 05/15/17 22:33 Calcium 8.8 mg/dL (8.4-10.2) 05/16/17 09:54 Phosphorus 2.50 mg/dL (2.5-4.5) 05/14/17 20:32 Magnesium 1.80 mg/dL (1.7-2.3) 05/14/17 20:32 Troponin T < 0.010 ng/mL (0.00-0.029) 05/14/17 20:32 NT-Pro-B Natriuret Pep 1426 pg/mL (0-900) H 05/14/17 20:32 TSH 1.020 mlU/mL (0.270-4.200) 05/14/17 20:32 Free T4 0.80 ng/dL (0.76-1.46) 05/14/17 20:32 Urine Color Straw (Yellow) 05/14/17 13:37 Urine Turbidity Clear (Clear) 05/14/17 13:37 Urine pH 5.0 (5.0-7.0) 05/14/17 13:37 Ur Specific Flippin 1.013 (1.003-1.030) 05/14/17 13:37 Urine Protein <15 mg/dl mg/dL (Negative) 05/14/17 13:37 Urine Glucose (UA) >=500 mg/dL (Negative) 05/14/17 13:37 Urine Ketones Neg mg/dL (Negative) 05/14/17 13:37 Urine Blood Neg (Negative) 05/14/17 13:37 Urine Nitrite Neg (Negative) 05/14/17 13:37 Urine Bilirubin Neg (Negative) 05/14/17 13:37 Urine Urobilinogen < 2.0 mg/dL (<2.0) 05/14/17 13:37 Ur Leukocyte Esterase Neg (Negative) 05/14/17 13:37 Urine WBC (Auto) < 1.0 /HPF (0.0-6.0) 05/14/17 13:37 Urine RBC (Auto) 1.0 /HPF (0.0-6.0) 05/14/17 13:37 Urine Opiates Screen Presumptive negative 05/14/17 13:37 Urine Methadone Screen Presumptive negative 05/14/17 13:37 Ur Barbiturates Screen Presumptive negative 05/14/17 13:37 Ur Phencyclidine Scrn Presumptive negative 05/14/17 13:37 Ur Amphetamines Screen Presumptive negative 05/14/17 13:37 U Benzodiazepines Scrn Presumptive negative 05/14/17 13:37 Urine Cocaine Screen Presumptive negative 05/14/17 13:37 U Marijuana (THC) Screen Presumptive negative 05/14/17 13:37 Drugs of Abuse Note Disclamer 05/14/17 13:37 Plasma/Serum Alcohol < 0.01 gm% (0-0.07) 05/14/17 13:06
[2017-05-16] MEDS: MOTRIN PO PRN ×2 (12:36→22:11)
--- NOTE | 2017-05-16 13:10 | Progress Note ---
Assessment and Plan Lexiscan stress MPI today. Continue other management including Cardizem. - Patient Problems (1) Paroxysmal atrial flutter Current Visit: Yes Status: Acute (2) New onset atrial flutter Current Visit: Yes Status: Acute (3) Chest pain Current Visit: Yes Status: Acute Qualifiers: Chest pain type: other chest pain Ischemic chest pain type: I Qualified Code(s): R07.89 - Other chest pain; R07.8 - Other chest pain (4) Abnormal ECG Current Visit: Yes Status: Acute (5) COPD (chronic obstructive pulmonary disease) Current Visit: Yes Status: Acute Qualifiers: COPD type: COPD with acute exacerbation Chronic bronchitis type: C Emphysema type: E Qualified Code(s): J44.1 - Chronic obstructive pulmonary disease with (acute) exacerbation (6) Acute heart failure Current Visit: Yes Status: Acute Qualifiers: Heart failure type: H (7) Hallucinations Current Visit: Yes Status: Acute (8) Diabetes mellitus Current Visit: Yes Status: Chronic Qualifiers: Diabetes mellitus type: type 2 Diabetes mellitus complication status: D Diabetes mellitus complication detail: D Diabetic retinopathy severity: D Proliferative retinopathy type: P Diabetes mellitus macular edema: D Diabetes mellitus chcf insulin use: D Laterality: L Chronic kidney disease stage: C Subjective Date of service: 05/16/17 Principal diagnosis: Paroxysmal atrial flutter, Acute DHF, CP, Abnormal ECG, COPD, Schizophrenia Interval history: No complaints this morning. She still had brief paroxysms of atrial flutter during the night as well as a brief pause earlier this morning. Objective Vital Signs Temp Pulse Resp BP Pulse Ox 05/16/17 11:00 98.5 F 73 18 134/99 96 05/16/17 07:34 98.5 F 73 18 107/55 96 05/16/17 07:00 100 H 05/16/17 06:32 78 05/16/17 05:15 97.8 F 82 14 117/68 99 05/16/17 00:19 98.3 F 73 16 105/55 05/15/17 23:00 84 05/15/17 22:00 98 05/15/17 17:44 98.3 F 75 18 137/72 96 05/15/17 15:57 90 05/15/17 14:56 91 H - Physical Examination General: No Apparent Distress HEENT: Positive: EOMI, Normocephaly, Mucus Membranes Moist Neck: Positive: neck supple, trachea midline Cardiac: Positive: Reg Rate and Rhythm, S1/S2 Lungs: Positive: Rhonchi Neuro: Positive: Grossly Intact Abdomen: Positive: Soft, Active Bowel Sounds. Negative: Tender Skin: Positive: Clear. Negative: Rash Musculoskeletal: Normal Range of Motion Extremities: Present: edema (trace pitting bilateral leg edema) - Labs and Meds Comprehensive Metabolic Panel 05/16/17 Range/Units 09:54 Sodium 135 L (137-145) mmol/L Potassium 4.5 (3.6-5.0) mmol/L Chloride 98.0 (98-107) mmol/L Carbon Dioxide 23 (22-30) mmol/L BUN 17 (7-17) mg/dL Creatinine 0.7 (0.7-1.2) mg/dL Glucose 244 H (65-100) mg/dL Calcium 8.8 (8.4-10.2) mg/dL - Imaging and Cardiology EKG: image reviewed - Telemetry EKG Rhythm: Sinus Rhythm Repolarization changes or abnormalities: ST or T wave suggestive of ischemia
[2017-05-16] MEDS ORDERED: LASIX PO SCH (13:30)
--- NOTE | 2017-05-16 16:16 | Progress Note ---
Subjective - Reason for Consult Consult date: 05/16/17 Reason for consult: follow up - Chief Complaint Chief complaint: "I heard the voices this morning." 61 year old female presented to the ER with AH to cut her throat. She was seen on the medical floor. She believes risperdal caused her a flutter because she restarted it for a short time less than one month ago and then discontinued it again because of palpitations. She reports AH this am telling her to harm herself. She denies intention. She states she harjeet with it by reading the bible and praying. She denies HI. She will start zyprexa tonight. Mental Status Exam - Vital signs Last Vital Signs Temp 98.5 F 05/16/17 11:00 Pulse 78 05/16/17 14:42 Resp 18 05/16/17 11:00 BP 134/99 05/16/17 11:00 Pulse Ox 96 05/16/17 11:00 Assessment and Plan - Exam Orientation: time, place, person Affect: depressed Mood: congruent with affect Thought content: other (she reports AH to harm herself. no HI) Thought Process: Intact Perceptions: auditory, command, hallucinations Speech: normal rate and pattern Concentration: focused Motor activity: normal Level of consciousness: alert Memory: Intact Sleep Symptoms: Difficulty Falling Asleep Interaction: cooperative Assessment and plan: Impression: Psychotic disorder unspecified. ddx: schizophrenia, major depressive disorder with psychotic features She has chronic mental illness and no previous actions based on command hallucinations. She displayed help seeking behavior for her symptoms and has historically. She has been started on an antipsychotic and we will assess her response. She has outpatient treatment established with a psychiatrist and sees a therapist. There are no acute safety concerns Recommendation: Continue zyprexa 2.5mg hs for mood and psychotic symptoms Rescind 1013 and will follow daily.
[2017-05-16] MEDS: DESYREL PO SCH (21:56)
[2017-05-16] MEDS: ELIQUIS PO SCH (21:57)
[2017-05-16] MEDS ORDERED: LEVEMIR SUB-Q SCH (22:00)
[2017-05-17] MEDS: CARDIZEM PO SCH ×2 (00:36→06:55)
--- NOTE | 2017-05-17 01:16 | Admit Criteria Form ---
Admission Criteria Documentation: TELEMETRY CARE Telemetry Admission Guidelines (Place 'X' for any and all applicable criteria): Admission to telemetry [A] may be indicated for ANY ONE of the following(1)(2)(3 )(4)(5): [X]I. Cardiac disease, including ANY ONE of the following (9)(10)(11)(12)(13 ): [ ]a) Postacute NE [ ]b) Low-risk patients with ST-segment elevation NE who have undergone successful percutaneous coronary intervention [ ]c) Unstable angina [ ]d) Suspected NE (until it is ruled out) [ ]e) Post cardiac surgery (first 48 to 72 hours unless complications occur) [X]f) Acute arrhythmias (including significant tachycardia or bradycardia) [B] [ ]g) Firing of an implantable cardioverter defibrillator [C] [ ]h) Suspected pacemaker or implantable cardioverter defibrillator malfunction (10) [ ]i) New administration or adjustment of an antiarrhythmic drug [D ] [ ]j) Child admitted for acute congestive heart failure [ ]j) Long QT syndrome [ ]k) Advanced heart block (eg, second-degree Mobitz type II, third- degree heart block) [ ]l) Acute myocarditis or pericarditis [ ]m) Short-term (ambulatory or inpatient) monitoring after a cardiac procedure as indicated by ANY ONE of the following [E]: [ ]i) Electrophysiologic studies [ ]ii) Percutaneous coronary intervention with stent placement [ ]iii) Pacemaker placement with cardiac conduction defect [ ]iv) Implantable cardiac defibrillator placement [ ]II. Drug overdose or poisoning with substance that causes arrhythmias or QT prolongation (eg, phenothiazines, sympathomimetic agents, cyclic antidepressants, digitalis, antiarrhythmic drugs)(15) [ ]III. Short-term (ambulatory or inpatient) monitoring after therapeutic or diagnostic procedure requiring conscious sedation or anesthesia (eg, endoscopy, elective cardioversion) [ ]IV. Acute cerebrovascular even[F](18) [ ]V. Massive blood transfusion (eg, at least 10 units of packed red blood cells in 24 hours) [ ]. Variceal bleeding after endoscopy, sclerotherapy, or IV vasopressin [ ]VII. Uncorrected electrolyte abnormalities associated with an increased risk of dangerous arrhythmia [G]; examples include [ ]a) Hyperkalemia with attributable ECG changes [ ]b) Potassium greater than 6.5 mmol/L (mEq/L) in a patient without history of chronic renal disease [ ]c) Prolonged QT attributed to hypokalemia, hypomagnesemia, or hypocalcemia [ ]VIII.Unexplained syncope or other neurologic event suspected of being due to arrhythmia due to a finding that increases risk; examples include(19)(20)(21): [ ]a) High-risk ECG findings (eg, bifascicular block, bradycardia, abnormal QT interval, ventricular pre- excitation) [ ]b) History of previous syncope due to arrhythmia [ ]c) Abnormal ventricular function (eg, reduced ejection fraction ) [ ]d) Exertional or supine syncope [ ]e) Concerning syncope characteristics (eg, sudden loss of consciousness without prodrome) [ ]f) Family history of sudden [ ]g) Use of arrhythmogenic medication [ ]h) Suspected cardiac ischemia [ ]i) Known channelopathy (eg, long QT syndrome, Brugada syndrome, or catecholaminergic paroxysmal ventricular tachycardia) [ ]j) Known structural heart disease (eg, hypertrophic cardiomyopathy , severe valvular disease) [ ]k) Palpitations preceding syncope The original [employer] content created by [employer] has been revised. The portions of the content which have been revised are identified through the use of italic text or in bold, and [employer] has neither reviewed nor approved the modified material. All other unmodified content is copyright [employer]. Please see references footnoted in the original [employer] edition 2016 Admission Criteria Met: Yes
[2017-05-17] MEDS: MOTRIN PO PRN ×3 (03:26→21:44)
[2017-05-17 07:19] LABS: Anion Gap 17 mmol/L; BUN/Creatinine Ratio 26.25; Blood Urea Nitrogen 21 mg/dL (7-17); Calcium 8.6 mg/dL (8.4-10.2); Carbon Dioxide 26 mmol/L (22-30); Chloride 99.1 mmol/L (98-107); Glucose 356 mg/dL (65-100); Sodium 137 mmol/L (137-145)
--- NOTE | 2017-05-17 07:41 | Vascular Lab Report ---
LOWER EXTREMITY VENOUS DUPLEX: REASON FOR EXAM: Edema of the lower extremities. COMMENTS ON THE RIGHT: All veins visualized are freely compressible without evidence of internal echogenicity. Flow is spontaneous and phasic throughout. COMMENTS ON THE LEFT: Deep venous thrombus noted in the left posterior tibial vein. The remaining veins visualized are freely compressible without evidence of internal echogenicity. Spontaneous and phasic flow is present proximally. IMPRESSION: Deep venous thrombosis in the left posterior tibial vein.
[2017-05-17] MEDS: NOVOLOG SUB-Q SCH ×5 (10:00→18:31)
[2017-05-17] MEDS ORDERED: K-DUR PO SCH ×2 (10:00→13:30)
[2017-05-17] MEDS: LASIX PO SCH (10:01)
[2017-05-17] MEDS: ELIQUIS PO SCH ×2 (10:01→21:44)
--- NOTE | 2017-05-17 10:10 | Progress Note ---
Subjective - Reason for Consult Consult date: 05/17/17 Reason for consult: Psychiatry Follow-up - Chief Complaint Chief complaint: "No voices today" 61 year old female presented to the ER with AH to cut her throat. She was seen on the medical floor. Today patient is calm and cooperative during assessment. She stated feeling much better today and got "plenty" of rest last night. She denies SI/HI's, AVH's, and depression. She stated that she attend group at [facility] for outpatient psy services. She denies any side effects of her medications. Mental Status Exam - Vital signs Last Vital Signs Temp 98.4 F 05/17/17 04:00 Pulse 74 05/17/17 04:00 Resp 20 05/17/17 04:00 BP 134/63 05/17/17 06:55 Pulse Ox 99 05/17/17 04:00 - Exam Narrative exam: MSE: Appearance: calm, cooperative Behavior: regular eye contact Speech: regular rate and tone Mood: "okay" Affect: congruent to mood Thought Process: linear Thought Content: denies SI/HI's and AVH's Motor Activity: sitting up at the bedside Cognition: A/Ox 3 Insight: fair Judgment: fair Assessment and Plan Impression: Psychotic disorder unspecified. Today patient is calm and cooperative during assessment. No command hallucinations. No acute psychosis. Recommendation/Plan: Continue Zyprexa 2.5 mg PO HS for mood/psychotic symptoms. Discussed possible metabolic side effects of Zyprexa with patient and possible suicidality/medication induced tia with patient reference Trazodone. Patient can follow-up with [facility] for outpatient psy services.
--- NOTE | 2017-05-17 10:19 | Discharge Summary ---
Providers - Providers Date of Admission: 05/14/17 23:48 Attending physician: MEME GANN MD 05/14/17 23:52 Consult to Mental Health [CONS] Routine Reason For Exam: suicidal,psychosis Place consult to:: Psych Notified:: y Was contact made?: Yes If yes, spoke with:: alejandra [id number] 05/15/17 11:58 Consult to Dietitian/Nutrition [CONS] Routine Physician Instructions: Reason For Exam: Reason for Consult: Diet education Primary care physician: STITCH RUBBER Hospitalization Condition: Fair Hospital course: Patient is 41-year-old with history of diabetes, hypertension. . She came to the emergency department because of psychosis. Shee stated that she heard voices telling her to kill herself. While in ED, she started complaining of shortness of breath and palpitation. EKG showed atrial flutter. She was given Cardizem iv. She was then admitted to Telemetry. She clinically improved, her meds optimized and her echocardiogram showed preserved EF. She also went on to have a nuclear stress test and negative for ischemia. She was seen in conjunction with cardiology. She complained of left lower extremity swelling and was found to have a left lower extremity DVT for which she was started anticoagulation. She was hyperglycemic while in hospital different insulins optimized. She was continued on blood pressure medications. With regards to psychosis and suicide ideation she was seen by mental health/psychiatry who optimized her psychiatric meds. psychiatry lifted her 1013 she is being discharged home with her daughter. Of note neurotin was dc because it exacerbates her delireum and confusion Discharge diagnoses Atrial flutter with rapid ventricular response, new onset. LLE acute DVT Diabetes mellitus type 2. Uncontrolled, insulin-dependent Hypertension . BP borderline. Acute psychosis with hallucinations, and Suicidal ideations. Delireum Disposition: DC-01 TO HOME OR SELFCARE Time spent for discharge: 33 minutes Core Measure Documentation - Palliative Care Palliative Care/ Comfort Measures: Not Applicable - Core Measures Any of the following diagnoses?: none Exam - Constitutional Vitals: Temp Pulse Resp BP Pulse Ox 98.4 F 74 20 134/63 99 05/17/17 04:00 05/17/17 04:00 05/17/17 04:00 05/17/17 06:55 05/17/17 04:00 General appearance: Present: no acute distress, well-nourished - EENT Eyes: Present: PERRL ENT: hearing intact, clear oral mucosa - Neck Neck: Present: supple, normal ROM - Respiratory Respiratory effort: normal Respiratory: bilateral: CTA - Cardiovascular Heart Sounds: Present: S1 & S2. Absent: rub, click - Extremities Extremities: pulses symmetrical Extremity abnormal: edema (LLE) Peripheral Pulses: within normal limits - Abdominal General gastrointestinal: Present: soft, non-tender, non-distended, normal bowel sounds Female genitourinary: Present: normal - Integumentary Integumentary: Present: clear, warm, dry - Musculoskeletal Musculoskeletal: gait normal, strength equal bilaterally - Psychiatric Psychiatric: appropriate mood/affect, intact judgment & insight - Neurologic Neurologic: CNII-XII intact, moves all extremities Plan Follow up with: PRIMARY CARE,MD [Primary Care Provider] - 3-5 Days Prescriptions: Insulin Detemir [Levemir] 40 units SUB-Q QHS #1 vial OLANzapine [ZyPREXA] 2.5 mg PO QHS #30 tablet Apixaban [Eliquis] 10 mg PO Q12HR 30 Days Diltiazem HCl [Diltiazem 24Hr ER] 120 mg PO DAILY #30 cap.er.24h Furosemide [Lasix TAB] 20 mg PO QAM #30 tablet Glyburide 5 mg PO BIDAC #60 Insulin Lispro [HumaLOG VIAL] 12 units SQ AC #1 vial Potassium Chloride [K-Dur] 10 meq PO DAILY #30 tablet traZODone 100 mg PO HS #30
[2017-05-17] MEDS: CARDIZEM CD PO SCH (12:54)
--- NOTE | 2017-05-17 14:37 | Progress Note ---
Assessment and Plan Assessment: Paroxysmal atrial flutter - new onset, transient. Chest pain, atypical LLE DVT Abnormal ECG COPD Acute diastolic heart failure - nearing/at euvolemia. Bipolar disorder / Hallucinations HTN DM Plan: Currently stable cardiac status. Cont present cardiac regimen. DM management per primary. Pt ate breakfast this AM so lexiscan MPI stress test post-poned until tomorrow AM. NPO after MN. The patient has been seen in conjunction with Dr. JOHN Dunham who agrees with the assessment and plan of care. Subjective Date of service: 05/17/17 Principal diagnosis: Paroxysmal atrial flutter, Acute DHF, CP, Abnormal ECG, COPD, Schizophrenia Interval history: Pt ambulating around unit without difficulty, still c/o some midsternal chest "heaviness". VSS. Remains in SR with on PAF noted on tele. Objective Last Vital Signs Temp 98.0 F 05/17/17 08:00 Pulse 81 05/17/17 08:00 Resp 20 05/17/17 08:00 BP 127/67 05/17/17 08:00 Pulse Ox 94 05/17/17 08:00 - Physical Examination General: No Apparent Distress HEENT: Positive: EOMI, Normocephaly, Mucus Membranes Moist Neck: Positive: neck supple, trachea midline Cardiac: Positive: Reg Rate and Rhythm, S1/S2 Lungs: Positive: clear to auscultation Neuro: Positive: Grossly Intact Abdomen: Positive: Soft, Active Bowel Sounds. Negative: Tender Skin: Positive: Clear. Negative: Rash Musculoskeletal: Normal Range of Motion Extremities: Present: edema (trace pitting bilateral leg edema) - Labs and Meds Comprehensive Metabolic Panel 05/17/17 Range/Units 06:38 Sodium 137 (137-145) mmol/L Potassium 5.0 (3.6-5.0) mmol/L Chloride 99.1 (98-107) mmol/L Carbon Dioxide 26 (22-30) mmol/L BUN 21 H (7-17) mg/dL Creatinine 0.8 (0.7-1.2) mg/dL Glucose 356 H (65-100) mg/dL Calcium 8.6 (8.4-10.2) mg/dL - Imaging and Cardiology EKG: image reviewed - Telemetry EKG Rhythm: Sinus Rhythm Repolarization changes or abnormalities: ST or T wave suggestive of ischemia
--- NOTE | 2017-05-17 15:27 | Progress Note ---
Assessment and Plan Assessment and plan: Patient is 41-year-old with history of diabetes, hypertensio. She came to the emergency department because of psychosis. Shee stated that she heard voices telling her to kill herself. While in ED, she started complaining of shortness of breath and palpitation. EKG showed atrial flutter. She was given Cardizem iv. She will be admitted to telemetry. Atrial flutter with rapid ventricular response, new onset. Admit to telemetry. Cardizem 60 mg by mouth every 6 hours. She was given Cardizem IV push in the ED. anticoagulation with Lovenox. echocardiogram shows preserved EF. cardiology input appreciated -She ate breakfast this morning and if that did not stress test, stress has had very scheduled for tomorrow LLE acute DVT VQ scan is negative continue eliquis Diabetes mellitus type 2. Hyperglycemia, will increase dose of insulin, continue sliding scale Hypertension . BP borderline. Acute psychosis with audio hallucinations, and Suicidal ideations. Suicidal Ideation. continue 1013 psych input appreciated, meds being optimized dc gabapentin as it worsens her delireum 1013 was discontinued as she is no longer having suicidal ideation, DVT ppx- fully antiocoagulated History Interval history: Denies chest pain, denies shortness of breath. She states that she still hears voices, but sedated and not telling her to harm herself Hospitalist Physical - Physical exam Narrative exam: General: Patient appears well in no distress HEENT: MMM, EOMI cardiac: S1-S2 heard lungs: clear to auscultation, abdomen: soft, nontender, nondistended bowel sounds positive extremities: LLE edema Skin: no rash or lesion Neuro: no focal deficit Psych: Cooperative, however disorganized behavior - Constitutional Vitals: Temp Pulse Resp BP Pulse Ox 98.0 F 81 20 127/67 94 05/17/17 08:00 05/17/17 08:00 05/17/17 08:00 05/17/17 08:00 05/17/17 08:00 General appearance: Present: no acute distress, well-nourished Results - Labs CBC & Chem 7: 05/15/17 06:26 05/17/17 06:38 Labs: Laboratory Last Values WBC 9.0 K/mm3 (4.5-11.0) 05/15/17 06:26 RBC 4.48 M/mm3 (3.65-5.03) 05/15/17 06:26 Hgb 11.9 gm/dl (10.1-14.3) 05/15/17 06:26 Hct 36.7 % (30.3-42.9) 05/15/17 06:26 MCV 82 fl (79-97) 05/15/17 06:26 MCH 27 pg (28-32) L 05/15/17 06: MCHC 33 % (30-34) 05/15/17 06:26 RDW 15.2 % (13.2-15.2) 05/15/17 06:26 Plt Count 227 K/mm3 (140-440) 05/15/17 06:26 Lymph % (Auto) 34.3 % (13.4-35.0) 05/15/17 06:26 [place] % (Auto) 7.5 % (0.0-7.3) H 05/15/17 06:26 Eos % (Auto) 3.7 % (0.0-4.3) 05/15/17 06:26 Baso % (Auto) 1.1 % (0.0-1.8) 05/15/17 06:26 Lymph # 3.1 K/mm3 (1.2-5.4) 05/15/17 06:26 [place] # 0.7 K/mm3 (0.0-0.8) 05/15/17 06:26 Eos # 0.3 K/mm3 (0.0-0.4) 05/15/17 06:26 Baso # 0.1 K/mm3 (0.0-0.1) 05/15/17 06:26 Seg Neutrophils % 53.4 % (40.0-70.0) 05/15/17 06:26 Seg Neutrophils # 4.8 K/mm3 (1.8-7.7) 05/15/17 06:26 PT 12.5 Sec. (12.2-14.9) 05/14/17 20:32 INR 0.94 (0.87-1.13) 05/14/17 20:32 APTT 25.4 Sec. (24.2-36.6) 05/14/17 20:32 D-Dimer 1701.89 ng/mlDDU (0-234) H 05/14/17 20:32 VBG pH 7.395 (7.320-7.420) 05/14/17 20:25 Sodium 137 mmol/L (137-145) 05/17/17 06:38 Potassium 5.0 mmol/L (3.6-5.0) 05/17/17 06:38 Chloride 99.1 mmol/L (98-107) 05/17/17 06:38 Carbon Dioxide 26 mmol/L (22-30) 05/17/17 06:38 Anion Gap 19 mmol/L 05/16/17 09:54 BUN 21 mg/dL (7-17) H 05/17/17 06:38 Creatinine 0.8 mg/dL (0.7-1.2) 05/17/17 06:38 Estimated GFR > 60 ml/min 05/17/17 06:38 BUN/Creatinine Ratio 26.25 % 05/17/17 06:38 Glucose 356 mg/dL (65-100) H 05/17/17 06:38 POC Glucose 296 (70-105) H 05/17/17 08:15 Calcium 8.6 mg/dL (8.4-10.2) 05/17/17 06:38 Phosphorus 2.50 mg/dL (2.5-4.5) 05/14/17 20:32 Magnesium 1.80 mg/dL (1.7-2.3) 05/14/17 20:32 Troponin T < 0.010 ng/mL (0.00-0.029) 05/14/17 20:32 NT-Pro-B Natriuret Pep 1426 pg/mL (0-900) H 05/14/17 20:32 TSH 1.020 mlU/mL (0.270-4.200) 05/14/17 20:32 Free T4 0.80 ng/dL (0.76-1.46) 05/14/17 20:32 Urine Color Straw (Yellow) 05/14/17 13:37 Urine Turbidity Clear (Clear) 05/14/17 13:37 Urine pH 5.0 (5.0-7.0) 05/14/17 13:37 Ur Specific [place] 1.013 (1.003-1.030) 05/14/17 13:37 Urine Protein <15 mg/dl mg/dL (Negative) 05/14/17 13:37 Urine Glucose (UA) >=500 mg/dL (Negative) 05/14/17 13:37 Urine Ketones Neg mg/dL (Negative) 05/14/17 13:37 Urine Blood Neg (Negative) 05/14/17 13:37 Urine Nitrite Neg (Negative) 05/14/17 13:37 Urine Bilirubin Neg (Negative) 05/14/17 13:37 Urine Urobilinogen < 2.0 mg/dL (<2.0) 05/14/17 13:37 Ur Leukocyte Esterase Neg (Negative) 05/14/17 13:37 Urine WBC (Auto) < 1.0 /HPF (0.0-6.0) 05/14/17 13:37 Urine RBC (Auto) 1.0 /HPF (0.0-6.0) 05/14/17 13:37 Urine Opiates Screen Presumptive negative 05/14/17 13:37 Urine Methadone Screen Presumptive negative 05/14/17 13:37 Ur Barbiturates Screen Presumptive negative 05/14/17 13:37 Ur Phencyclidine Scrn Presumptive negative 05/14/17 13:37 Ur Amphetamines Screen Presumptive negative 05/14/17 13:37 U Benzodiazepines Scrn Presumptive negative 05/14/17 13:37 Urine Cocaine Screen Presumptive negative 05/14/17 13:37 U Marijuana (THC) Screen Presumptive negative 05/14/17 13:37 Drugs of Abuse Note Disclamer 05/14/17 13:37 Plasma/Serum Alcohol < 0.01 gm% (0-0.07) 05/14/17 13:06
[2017-05-17] MEDS: DESYREL PO SCH (21:45)
[2017-05-17] MEDS ORDERED: LEVEMIR SUB-Q SCH (22:00)
[2017-05-18] MEDS: NOVOLOG SUB-Q SCH ×8 (00:24→17:40)
[2017-05-18 06:38] LABS: Anion Gap 20 mmol/L; BUN/Creatinine Ratio 31.25; Blood Urea Nitrogen 25 mg/dL (7-17); Calcium 8.6 mg/dL (8.4-10.2); Carbon Dioxide 22 mmol/L (22-30); Chloride 99.3 mmol/L (98-107); Glucose 274 mg/dL (65-100); Potassium 4.9 mmol/L (3.6-5.0); Sodium 136 mmol/L (137-145)
[2017-05-18] MEDS ORDERED: LEXISCAN IV ONE ×2 (08:09→08:13)
--- NOTE | 2017-05-18 11:29 | Progress Note ---
Subjective - Reason for Consult Consult date: 05/18/17 Reason for consult: Psychiatry Follow-up - Chief Complaint Chief complaint: "No voices again today" 61 year old female presented to the ER with AH to cut her throat. She was seen on the medical floor. Today patient is calm and cooperative during assessment. She stated that the voices has "ceased totally." She stated that she look forward to being discharged and will follow up with [facility] for her outpatient psy services. She was on her way for a stress test when I arrived. She denies SI/HI's, AVH's, and depression. She denies any side effects of her medications. Mental Status Exam - Vital signs Last Vital Signs Temp 97.4 F L 05/18/17 04:00 Pulse 75 05/18/17 04:00 Resp 18 05/18/17 04:00 BP 113/55 05/18/17 04:00 Pulse Ox 98 05/18/17 04:00 - Exam Narrative exam: MSE: Appearance: calm, cooperative Behavior: regular eye contact Speech: regular rate and tone Mood: "well" Affect: congruent to mood Thought Process: linear Thought Content: denies SI/HI's and AVH's Motor Activity: sitting up at the bedside Cognition: A/Ox 3 Insight: fair Judgment: fair Assessment and Plan Impression: Psychotic disorder unspecified. Today patient is calm and cooperative during assessment. No command hallucinations. No acute psychosis. Patient is no threat to self. Recommendation/Plan: Continue Zyprexa 2.5 mg PO HS for mood/psychotic symptoms. Discussed possible metabolic side effects of Zyprexa with patient and possible suicidality/medication induced tia with patient reference Trazodone. Patient can follow-up with [facility] for outpatient psy services.
[2017-05-18] MEDS: ELIQUIS PO SCH (11:38)
[2017-05-18] MEDS: CARDIZEM CD PO SCH (11:38)
[2017-05-18] MEDS: LASIX PO SCH (11:43)
--- NOTE | 2017-05-18 12:58 | Progress Note ---
Assessment and Plan Assessment: Paroxysmal atrial flutter - new onset, transient. Chest pain, atypical - resolved. LLE DVT Abnormal ECG COPD Acute diastolic heart failure - nearing/at euvolemia. Bipolar disorder / Hallucinations HTN DM Plan: s/p lexiscan MPI this AM which was negative for ischemia. Currently stable cardiac status. Pt may discharge home from cardiology standpoint. Recommend follow up in our office with Janina Blair NP, within 2 weeks of hospital discharge ([phone]). The patient has been seen in conjunction with Dr. JOHN Dunham who agrees with the assessment and plan of care. Subjective Date of service: 05/18/17 Principal diagnosis: Paroxysmal atrial flutter, Acute DHF, CP, Abnormal ECG, COPD, Schizophrenia Interval history: Pt ambulating around unit without difficulty, no complaints. S/p lexiscan MPI stress test this AM. Objective Last Vital Signs Temp 97.4 F L 05/18/17 04:00 Pulse 82 05/18/17 11:38 Resp 18 05/18/17 11:30 BP 110/60 05/18/17 11:38 Pulse Ox 98 05/18/17 04:00 - Physical Examination General: No Apparent Distress HEENT: Positive: EOMI, Normocephaly, Mucus Membranes Moist Neck: Positive: neck supple, trachea midline Cardiac: Positive: Reg Rate and Rhythm, S1/S2 Lungs: Positive: clear to auscultation Neuro: Positive: Grossly Intact Abdomen: Positive: Soft, Active Bowel Sounds. Negative: Tender Skin: Positive: Clear. Negative: Rash Musculoskeletal: Normal Range of Motion Extremities: Present: edema (trace pitting bilateral leg edema) - Labs and Meds Comprehensive Metabolic Panel 05/18/17 Range/Units 05:24 Sodium 136 L (137-145) mmol/L Potassium 4.9 (3.6-5.0) mmol/L Chloride 99.3 (98-107) mmol/L Carbon Dioxide 22 (22-30) mmol/L BUN 25 H (7-17) mg/dL Creatinine 0.8 (0.7-1.2) mg/dL Glucose 274 H (65-100) mg/dL Calcium 8.6 (8.4-10.2) mg/dL - Imaging and Cardiology EKG: image reviewed Repolarization changes or abnormalities: ST or T wave suggestive of ischemia
--- NOTE | 2017-05-18 14:32 | Treadmill Report ---
NUCLEAR STRESS TEST The patient is brought to the Cardiology lab and a nuclear stress test is performed by administrating Lexiscan. The patient tolerated the procedure well. Post-stress images reveal homogeneous distribution of isotope with no significant reversibility to indicate ischemia. Accompanying gated study shows good systolic function with a calculated ejection fraction of 76%. No wall motion abnormalities are noted. IMPRESSION: 1. Dual isotope study is negative for significant reversibility to indicate ischemia. 2. Good systolic function with a calculated ejection fraction of 76%. 3. Suggest clinical correlation. JOB# [id number] KB/[id number]
[2017-05-18 17:46] VITALS: BP 126/62
[2017-05-23] MEDS ORDERED: ELIQUIS PO SCH (22:00)
== END 2017-05-18 18:44 | disposition home or self-care (01) | DRG 299 ==
LOC: ED 12:21 → 4A 23:48
PROVIDERS: ADMIT Internal Medicine; ATTEND Internal Medicine
DX: I82.4Z2 Acute embolism and thrombosis of unspecified deep veins of left distal lower extremity (principal); I50.31 Acute diastolic (congestive) heart failure; I48.92 Unspecified atrial flutter; E11.65 Type 2 diabetes mellitus with hyperglycemia; F41.9 Anxiety disorder, unspecified; F17.210 Nicotine dependence, cigarettes, uncomplicated; F14.90 Cocaine use, unspecified, uncomplicated; F28 Other psychotic disorder not due to a substance or known physiological condition; F23 Brief psychotic disorder; J44.1 Chronic obstructive pulmonary disease with (acute) exacerbation; Z60.2 Problems related to living alone; F25.9 Schizoaffective disorder, unspecified; I11.0 Hypertensive heart disease with heart failure; R41.0 Disorientation, unspecified; Z91.040 Latex allergy status; Z91.041 Radiographic dye allergy status; Z88.8 Allergy status to other drugs, medicaments and biological substances; Z98.891 History of uterine scar from previous surgery; Z82.49 Family history of ischemic heart disease and other diseases of the circulatory system
CPT/HCPCS: 36415; 71010; 78452; 78582; 80048; 80307; 80320; 81001; 82805; 82962; 83735; 83880; 84100; 84439; 84443; 84484; 85025; 85379; 85610; 85730; 93005; 93010; 93017; 93306; 93970; 96372; 96374; 96375; A9502; A9540; A9558; G0480; J1160; J1650; J1815; J1818; J1940; J2270; J2405; J2785

== ENCOUNTER 2018-11-24 12:10 | Emergency (ER) | payer MEDICAID ==
[2018-11-24 14:17] LABS: Basophils # (Auto) 0.1 K/mm3 (0.0-0.1); Basophils % (Auto) 0.6 % (0.0-1.8); Eosinophils # (Auto) 0.1 K/mm3 (0.0-0.4); Eosinophils % (Auto) 1.4 % (0.0-4.3); Hemoglobin 14.4 gm/dl (10.1-14.3); Lymphocytes # (Auto) 4.2 K/mm3 (1.2-5.4); Lymphocytes % (Auto) 39.4 % (13.4-35.0); Mean Corpuscular HGB Conc 33 % (30-34); Mean Corpuscular Volume 85 fl (79-97); Monocytes # (Auto) 1.1 K/mm3 (0.0-0.8); Monocytes % (Auto) 9.9 % (0.0-7.3); Platelet Count 231 K/mm3 (140-440); Red Blood Count 5.08 M/mm3 (3.65-5.03); Red Cell Distribution Width 14.9 % (13.2-15.2)
[2018-11-24] MEDS ORDERED: MORPHINE IV ONE (14:37)
[2018-11-24] MEDS ORDERED: ZOFRAN IV ONE (14:37)
[2018-11-24 14:42] LABS: Alanine Aminotransferase 24 units/L (7-56); Albumin 3.8 g/dL (3.9-5); BUN/Creatinine Ratio 19; Blood Urea Nitrogen 19 mg/dL (7-17); Calcium 9.5 mg/dL (8.4-10.2); Hemolysis Index 20
--- NOTE | 2018-11-24 15:59 | Emergency Department Report ---
ED General Adult HPI - General Chief complaint: Weakness Stated complaint: GENERAL WEAKNESS Time Seen by Provider: 11/24/18 13:40 Source: patient, EMS Mode of arrival: Stretcher Limitations: Physical Limitation - History of Present Illness Initial comments: Patient presents to emergency Department chief complaint of nausea vomiting with abdominal pain for the last 2-3 days. Patient has chest pain, sore throat, headache. -: Sudden Location: abdomen Radiation: non-radiation Severity scale (0 -10): 7 Quality: burning, aching Consistency: constant Improves with: none Worsens with: none Associated Symptoms: denies other symptoms Treatments Prior to Arrival: none - Related Data Home Medications Medication Instructions Recorded Confirmed Last Taken Duloxetine HCl [Cymbalta] 30 mg PO QAM 06/03/17 06/03/17 06/02/17 Famotidine [Pepcid] 20 mg PO BID 06/03/17 06/03/17 06/02/17 Gabapentin [Neurontin] 300 mg PO Q8HR 06/03/17 06/03/17 06/02/17 Insulin NPH/Regular [NovoLIN 70/30] 10 unit SQ QHS 06/03/17 06/03/17 06/02/17 Insulin NPH/Regular [NovoLIN 70/30] 20 unit SQ QAM 06/03/17 06/03/17 06/02/17 Linagliptin [Tradjenta] 5 mg PO QDAY 06/03/17 06/03/17 06/02/17 OLANZapine 10 mg PO QHS 06/03/17 06/03/17 06/02/17 Oxycodone HCl/Acetaminophen 1 each PO Q6HR PRN 06/03/17 06/03/17 06/02/17 [Percocet 10/325 mg] glyBURIDE [Glyburide] 5 mg PO 4XD 06/03/17 06/03/17 06/02/17 traZODone [Desyrel] 100 mg PO QHS 06/03/17 06/03/17 06/02/17 Previous Rx's Medication Instructions Recorded Last Taken Type levoFLOXacin [Levaquin] 750 mg PO QDAY #5 day 06/05/17 Unknown Rx Dicyclomine [Bentyl] 10 mg PO QID PRN #20 capsule 11/24/18 Unknown Rx Ondansetron [Zofran Odt] 4 mg PO Q4HR PRN #20 tab.rapdis 11/24/18 Unknown Rx Allergies Allergy/AdvReac Type Severity Reaction Status Date / Time gabapentin AdvReac Unknown Verified 05/15/17 15:09 Iodinated Contrast- Oral and AdvReac Hives Verified 02/21/17 04:04 IV Dye Latex, Natural Rubber AdvReac Hives Verified 02/21/17 04:04 ED Review of Systems ROS: Stated complaint: GENERAL WEAKNESS Other details as noted in HPI Comment: All other systems reviewed and negative Constitutional: denies: chills, fever Eyes: denies: eye pain, eye discharge, vision change ENT: denies: ear pain, throat pain Respiratory: denies: cough, shortness of breath, wheezing Cardiovascular: denies: chest pain, palpitations Endocrine: no symptoms reported Gastrointestinal: abdominal pain. denies: nausea, diarrhea Genitourinary: denies: urgency, dysuria, discharge Musculoskeletal: denies: back pain, joint swelling, arthralgia Skin: denies: rash, lesions Neurological: denies: headache, weakness, paresthesias Psychiatric: denies: anxiety, depression Hematological/Lymphatic: denies: easy bleeding, easy bruising ED Past Medical Hx - Past Medical History Hx Congestive Heart Failure: No Hx Diabetes: Yes Hx Deep Vein Thrombosis: Yes ([facility] 05/2017) Hx Asthma: No Hx COPD: Yes Hx HIV: No Additional medical history: anxiety,irregular heart - Social History Smoking Status: Never Smoker - Medications Home Medications: Home Medications Medication Instructions Recorded Confirmed Last Taken Type Duloxetine HCl [Cymbalta] 30 mg PO QAM 06/03/17 06/03/17 06/02/17 History Famotidine [Pepcid] 20 mg PO BID 06/03/17 06/03/17 06/02/17 History Gabapentin [Neurontin] 300 mg PO Q8HR 06/03/17 06/03/17 06/02/17 History Insulin NPH/Regular [NovoLIN 70/30] 10 unit SQ QHS 06/03/17 06/03/17 06/02/17 History Insulin NPH/Regular [NovoLIN 70/30] 20 unit SQ QAM 06/03/17 06/03/17 06/02/17 History Linagliptin [Tradjenta] 5 mg PO QDAY 06/03/17 06/03/17 06/02/17 History OLANZapine 10 mg PO QHS 06/03/17 06/03/17 06/02/17 History Oxycodone HCl/Acetaminophen 1 each PO Q6HR PRN 06/03/17 06/03/17 06/02/17 History [Percocet 10/325 mg] glyBURIDE [Glyburide] 5 mg PO 4XD 06/03/17 06/03/17 06/02/17 History traZODone [Desyrel] 100 mg PO QHS 06/03/17 06/03/17 06/02/17 History levoFLOXacin [Levaquin] 750 mg PO QDAY #5 day 06/05/17 Unknown Rx Dicyclomine [Bentyl] 10 mg PO QID PRN #20 capsule 11/24/18 Unknown Rx Ondansetron [Zofran Odt] 4 mg PO Q4HR PRN #20 tab.rapdis 11/24/18 Unknown Rx ED Physical Exam - General Limitations: Physical Limitation General appearance: alert, in no apparent distress - Head Head exam: Present: atraumatic, normocephalic - Eye Eye exam: Present: normal appearance, PERRL, EOMI - ENT ENT exam: Present: mucous membranes moist - Neck Neck exam: Present: normal inspection - Respiratory Respiratory exam: Present: normal lung sounds bilaterally. Absent: respiratory distress, wheezes, rales, rhonchi - Cardiovascular Cardiovascular Exam: Present: regular rate, normal rhythm. Absent: systolic murmur, diastolic murmur, rubs, gallop - GI/Abdominal GI/Abdominal exam: Present: soft, tenderness (diffusely tender to palpation), normal bowel sounds. Absent: distended - Extremities Exam Extremities exam: Present: normal inspection - Back Exam Back exam: Present: normal inspection - Neurological Exam Neurological exam: Present: alert, oriented X3, CN II-XII intact. Absent: motor sensory deficit - Psychiatric Psychiatric exam: Present: normal affect, normal mood - Skin Skin exam: Present: warm, dry, intact, normal color. Absent: rash ED Course Vital Signs 11/24/18 11/24/18 13:14 13:16 Temperature 97.9 F Pulse Rate 62 Respiratory 15 16 Rate Blood Pressure 121/62 [Left] O2 Sat by Pulse 100 100 Oximetry ED Medical Decision Making - Lab Data Result diagrams: 11/24/18 14:07 11/24/18 14:07 - Medical Decision Making Discussed results with the patient Critical care attestation.: If time is entered above; I have spent that time in minutes in the direct care of this critically ill patient, excluding procedure time. ED Disposition Clinical Impression: Abdominal pain, Nausea & vomiting Disposition: DC-01 TO HOME OR SELFCARE Is pt being admited?: No Does the pt Need Aspirin: No Condition: Stable Instructions: Acute Nausea and Vomiting (ED), Abdominal Pain (ED) Additional Instructions: return if worse Referrals: PRIMARY CARE,MD [Primary Care Provider] - 3-5 Days RUSSELL SORIANO DO [Staff Physician] - 3-5 Days [facility] [Provider Group] - 3-5 Days [facility] [Provider Group] - 3-5 Days [facility] [Outside] - 3-5 Days Time of Disposition: 17:14
[2018-11-24 16:00] LABS: Bilirubin,Urine NEG (Negative); Blood,Urine NEG (Negative); Color,Urine Yellow (Yellow); RBC,Urine < 1.0 /HPF (0.0-6.0); Urobilinogen,Urine < 2.0 mg/dL (<2.0); WBC,Urine < 1.0 /HPF (0.0-6.0)
--- NOTE | 2018-11-24 17:06 | Cat Scan Report ---
FINAL REPORT EXAM: CT ABDOMEN PELVIS WO CON HISTORY: abdominal pain TECHNIQUE: CT abdomen and pelvis without contrast PRIORS: None. FINDINGS: No acute abnormality identified in the lung bases. No focal abnormality identified within the liver parenchyma. The spleen demonstrates normal size and attenuation. No pancreatic abnormalities seen. Kidneys demonstrate no evidence of hydronephrosis or nephrolithiasis. No ureteral calculus identified . The adrenal glands are unremarkable. Abdominal aorta is normal in caliber. No pathologically enlarged lymph nodes are identified. No signs of free fluid or free air No evidence of small bowel dilatation. The appendix is identified and is normal in size no adjacent inflammatory change seen. There are no p ericolonic inflammatory changes observed. Urinary bladder is unremarkable. IMPRESSION: Negative. No acute abnormalities seen
[2018-11-24 17:47] VITALS: BP 137/76
== END 2018-11-24 17:46 | disposition home or self-care (01) ==
LOC: ED 12:10
DX: R11.2 Nausea with vomiting, unspecified (principal); R10.84 Generalized abdominal pain; E11.9 Type 2 diabetes mellitus without complications; Z86.718 Personal history of other venous thrombosis and embolism; J44.9 Chronic obstructive pulmonary disease, unspecified; F41.9 Anxiety disorder, unspecified; Z91.040 Latex allergy status; Z91.041 Radiographic dye allergy status; Z88.8 Allergy status to other drugs, medicaments and biological substances; Z79.4 Long term (current) use of insulin
CPT/HCPCS: 36415; 74176; 80053; 81001; 82962; 85025; 96374; 96375; 99285; J2270; J2405